=== PATIENT | male | born 1950 | race Caucasian/White ===

== ENCOUNTER → 2016-11-03 | Outpatient (CLI) | payer BC, OTHER ==
[~2016-11-03] MED LIST: HYDC25 PO; METO50TA7 PO; SIMV20TA2 PO
== END | disposition home or self-care (01) ==
LOC: C.RDSM 12:41
PROVIDERS: ATTEND Orthopaedic Surgery Sports Medicine
DX: M25.561 Pain in right knee (principal)

== ENCOUNTER 2017-10-10 14:10 | Emergency (ER) | payer OTHER ==
[~2017-10-10] VITALS: Ht 175.3 cm; Wt 113.3 kg
[~2017-10-10 14:10] MED LIST changes: +ASPI81TA28 PO; -HYDC25 PO; +HYDR25TA4 PO; +LISI-461 PO; -METO50TA7 PO; +METO50TA8 PO
[2017-10-10 14:20] VITALS: TEMP 36.8; Ht 175.3 cm; Wt 113.3 kg
[2017-10-10] MEDS ORDERED: DEXAMETHASONE SOD INJ 4 MG/ML VIAL IV STA (14:53)
[2017-10-10] MEDS ORDERED: DiphenhydrAMINE HCL 50 MG/ML VIAL IV STA (14:53)
[2017-10-10 15:05] VITALS: O2SAT 94
[2017-10-10 16:30] VITALS: BP 123/79; PULSE 62; O2SAT 94
[2017-10-10] MEDS ORDERED: PRED50TA PO (16:50)
[2017-10-10] MEDS ORDERED: EPP3/2 IM (16:50)
--- NOTE | 2017-10-10 21:59 | EMERGENCY ROOM VISIT NOTE ---
History Report prepared by Isabel: Lorena Carrasco Under the Supervision of: Dr. Mehrdad Feldman M.D. First contact with patient: 14:44 Chief Complaint: ALLERGIC REACTION Stated Complaint: SWELLING,INFLAMMATION LEFT HAND/FOREARM,BUG BITE History of Present Illness The patient is a 67 year old male who presents to the Emergency Room with complaints of a worsening allergic reaction beginning around 1030 this morning. He notes he was walking his dog this morning and while on the walk, his left hand suddenly became itchy and it swelled. He thinks he got bit by a bug but it unsure. The patient states 1 year ago while walking his dog, he had a bug bite on his face but it resolved on its own after 24 hours. Pt denies LOC, headache, fevers, chills, diaphoresis, visual changes, neck pain, chest pain, breathing difficulties, nausea, vomiting, abdominal pain, back pain, melena, hematochezia , urinary symptoms, numbness, weakness, lymphadenopathy, rash, swelling anywhere other than his left hand/forarm, or other complaints. The patient has no known allergies. His PCP is Chelsi Juarez. Source of History: patient Onset: 1030 this morning Position: hand (left), other (left forearm) Quality: other (allergic reaction) Timing: worsening, other (while on a walk with his dog) Review of Systems See HPI for pertinent positives and negatives. A total of ten systems were reviewed and were otherwise negative. Past Medical & Surgical Medical Problems: (1) Hypercholesteremia (2) Hypertension Family History No pertinent family history Social History Smoking Status: Never Smoker Marital Status: Housing Status: lives with family Current/Historical Medications Scheduled Aspirin (Aspirin Ec), 81 MG PO DAILY Hydrochlorothiazide (Hctz), 25 MG PO DAILY Lisinopril (Zestril), 10 MG PO DAILY Metoprolol Succ (Toprol Xl) (Toprol-Xl), 50 MG PO DAILY Prednisone (Prednisone), 50 MG PO DAILY Simvastatin (Zocor), 20 MG PO QPM Scheduled PRN Epinephrine (Epipen 2-Xu), 1 DOSE IM UD PRN for Allergic Reaction Allergies Coded Allergies: No Known Allergies (Unverified , 10/10/17) Physical Exam Vital Signs Date Time Temp Pulse Resp B/P (MAP) Pulse Ox O2 Delivery O2 Flow Rate FiO2 10/10/17 16:30 62 18 123/79 94 Room Air 10/10/17 15:55 66 20 120/80 92 Room Air 10/10/17 15:05 94 Room Air 10/10/17 15:05 94 Room Air 10/10/17 15:01 72 10/10/17 14:20 36.8 78 18 141/82 94 Room Air Physical Exam GENERAL: Awake, alert, well-appearing, in no distress HENT: Normocephalic, atraumatic. Oropharynx unremarkable. EYES: Normal conjunctiva. Sclera non-icteric. NECK: Supple. No nuchal rigidity. FROM. No masses. RESPIRATORY: Clear to auscultation. No wheezes. No rales. Normal respiratory effort. CARDIAC: Normal rate. Normal rhythm. No murmurs. No rubs. Extremities warm and well perfused. Pulses equal. No JVD. GI: Soft, non-distended. No tenderness to palpation. No rebound or guarding. No masses. RECTAL: Deferred. MUSCULOSKELETAL: Atraumatic. Chest examination reveals no tenderness. The back is symmetrical on inspection without obvious abnormality. There is no CVA tenderness to palpation. No joint edema. LOWER EXTREMITIES: Calves are equal size bilaterally and non-tender. No edema. No discoloration. UPPER EXTREMITIES: Swelling to the mid left forearm. NEURO: Normal sensorium. No sensory or motor deficits noted. SKIN: No rash or jaundice noted. Small puncture wound on the radial side of the proximal third digit. Medical Decision & Procedures Medications Administered Medications (Trade) Dose Ordered Sig/Charisma Route Start Time Stop Time Status Last Admin Dose Admin Diphenhydramine HCl (Benadryl Inj) 50 mg NOW STAT IV 10/10/17 14:53 10/10/17 14:56 DC 10/10/17 15:05 50 MG Dexamethasone Sodium Phosphate (Decadron Inj) 10 mg NOW STAT IV 10/10/17 14:53 10/10/17 14:56 DC 10/10/17 15:05 10 MG ED Course 1451: The patient was evaluated in room B5. A complete history and physical exam was performed. 1453: Ordered Decadron Inj 10 mg IV, Benadryl Inj 50 mg IV 1538: I reevaluated the patient. He feels better and there is slightly less swelling. Discussed results and discharge instructions: He verbalized understanding and agreement. The patient is ready for discharge. Medical Decision Prior records/ancillary studies reviewed. Triage Nursing notes reviewed and agree them. Additional history obtained from patient's . The patient's history was concerning for possible allergic reaction. Differential diagnosis: Etiologies such as allergic reaction, anaphylaxis, urticaria, Sarabia-Marcos syndrome, toxic epidermal necrolysis, erythema multiforme, cellulitis, as well as others were entertained. Physical examination: As above. ER treatment provided: Continuous cardiac monitoring Benadryl 50 mg IV Decadron 10 mg IV On reassessment the patient felt better. Diagnostic interpretation by me: Deferred It appears the patient had an allergic reaction. It is unclear what bit him. There was a spot on his third finger that appeared consistent with a possible hymenoptera envenomation. The patient will be prescribed an EpiPen prednisone. He will follow-up with his primary physician for referral to allergy. I gave my usual and customary discussion regarding this issue. By the evaluation outlined above other emergent etiologies such as those listed in the differential, as well as others, were deemed relatively unlikely. The patient was educated about the findings as listed above. All questions were answered and the patient was pleased with the treatment. Return instructions were outlined and the patient was discharged in stable condition. The patient was referred to his PCP for follow-up for a recheck of the current condition. Medication Reconcilliation Current Medication List: was personally reviewed by me Blood Pressure Screening Patient's blood pressure: Elevated blood pressure Blood pressure disposition: Elevated BP felt to be situational Impression Primary Impression: Allergic reaction Scribe Attestation The scribe's documentation has been prepared under my direction and personally reviewed by me in its entirety. I confirm that the note above accurately reflects all work, treatment, procedures, and medical decision making performed by me. Departure Information Dispostion Home / Self-Care Prescriptions Prednisone (Prednisone) 50 Mg Tab 50 MG PO DAILY for 3 Days, #3 TAB Prov: Mehrdad Feldman MD 10/10/17 Epinephrine (EPIPEN 2-XU) 0.3 Mg Inj 1 DOSE IM UD Y for Allergic Reaction, #1 BOX 2 Refills Prov: Mehrdad Feldman MD 10/10/17 Referrals Osmin Haynes, D.OAlda (PCP) Forms HOME CARE DOCUMENTATION FORM, IMPORTANT VISIT INFORMATION Patient Instructions My [facility] Additional Instructions ALLERGIC REACTION INSTRUCTIONS: DO NOT drive, drink alcohol, operate machinery, or perform dangerous activities today. You were given medications in the ER that can affect your ability to safely function or operate a vehicle. Epi-Pen: Use one injection as instructed for severe allergic reactions associated with shortness of breath, difficulty breathing, or throat or tongue swelling. If you use this injection call 911 or proceed immediately to the nearest Emergency Room. Prednisone 50mg: Once daily until the prescription is finished. It is best to take this earlier in the day as some patients note occasional difficulty falling asleep when taken in the late evening. Diphenhydramine(Benadryl) 25mg: use 25 to 50 mg every six hours for swelling, itching, or hives. This medication is sedating and will cause drowsiness. Avoid alcohol, operating machinery or dangerous equipment, working on ladders or roofs, DRIVING, or situations where being under the influence may be dangerous. Zantac 75: Take two pills twice a day along with Benadryl as needed for swelling , itching, or hives. Most people know this for its affect on the stomach, but it also acts similar to, but less potent than Benadryl for allergic reactions. Both the Benadryl and the Zantac are available [id number]. Continue current medications. Return to the emergency department for worsening of your rash, swelling of your face, lips, tongue, or throat, difficulty breathing, vomiting, or as needed. Follow-up with your primary care physician in 2 to 3 days for a recheck of your current condition.
== END 2017-10-10 16:56 | disposition home or self-care (01) ==
LOC: C.EDB 14:12
DX: T78.40XA Allergy, unspecified, initial encounter (principal); E78.5 Hyperlipidemia, unspecified; I10 Essential (primary) hypertension; Z79.82 Long term (current) use of aspirin; Z79.899 Other long term (current) drug therapy